=== PATIENT | male | born 1995 | race Native Hawaiian/Other Pacific Islander ===

== ENCOUNTER 2016-11-25 12:31 | Emergency (ER) | payer OTHER ==
[~2016-11-25] VITALS: Ht 170.2 cm; Wt 83.9 kg
[2016-11-25 13:02] VITALS: BP 140/78
== END 2016-11-25 13:02 | disposition home or self-care (01) ==
LOC: ED 12:31
DX: Z48.02 Encounter for removal of sutures (principal)

== ENCOUNTER 2019-04-11 21:58 | Emergency (ER) | payer OTHER ==
[~2019-04-11] VITALS: Ht 172.7 cm; Wt 90.7 kg
[2019-04-11 23:18] VITALS: BP 150/85; TEMP 98.5
== END 2019-04-11 23:18 | disposition home or self-care (01) ==
LOC: ED 21:58
DX: N30.90 Cystitis, unspecified without hematuria (principal)
CPT/HCPCS: 81000; 87086; 87088; 99282; 99283

== ENCOUNTER 2020-11-06 15:50 | Emergency (ER) | payer OTHER ==
[~2020-11-06] VITALS: Ht 172.7 cm; Wt 90.7 kg
[2020-11-06 16:02] VITALS: TEMP 98
[2020-11-06 16:47] LABS: PLATELET COUNT 242 K/uL (142-355)
[2020-11-06 16:55] LABS: POTASSIUM 3.7 mmol/L (3.6-5.2)
[2020-11-06 17:56] VITALS: BP 160/69
== END 2020-11-06 18:07 | disposition home or self-care (01) ==
LOC: ED 15:50
PROVIDERS: Family Medicine
DX: N23 Unspecified renal colic (principal); N20.1 Calculus of ureter
CPT/HCPCS: 80053; 81000; 82150; 83690; 85027; 96360; 96375; 99284; J1885; J2405

== ENCOUNTER 2022-01-08 23:27 | Emergency (ER) | payer OTHER ==
[~2022-01-08] VITALS: Ht 172.7 cm; Wt 95.3 kg
[2022-01-09 01:34] VITALS: BP 140/78; TEMP 98.8
== END 2022-01-09 01:35 | disposition home or self-care (01) ==
LOC: ED 23:27
DX: S43.492A Other sprain of left shoulder joint, initial encounter (principal); W21.81XA Striking against or struck by football helmet, initial encounter; Y93.61 Activity, american tackle football; Y92.89 Other specified places as the place of occurrence of the external cause
CPT/HCPCS: 96372; 99283; J1885

== ENCOUNTER 2022-07-31 16:50 | Emergency (ER) | payer OTHER ==
[~2022-07-31] VITALS: Ht 172.7 cm; Wt 90.7 kg
[2022-07-31 16:50] VITALS: TEMP 99.1
[2022-07-31 17:24] VITALS: BP 159/90
== END 2022-07-31 17:25 | disposition home or self-care (01) ==
LOC: ED 16:57
DX: S10.83XA Contusion of other specified part of neck, initial encounter (principal); S40.012A Contusion of left shoulder, initial encounter; V49.40XA Driver injured in collision with unspecified motor vehicles in traffic accident, initial encounter; Y92.89 Other specified places as the place of occurrence of the external cause
CPT/HCPCS: 96372; 96374; 99284; J1885; J2360